=== PATIENT | male | born 2000 | race African-American/Black ===

== ENCOUNTER → 2023-07-24 09:06 | Outpatient (CLI) | payer OTHER, SELFPAY ==
--- NOTE | ~2023-07-24 | MR_ITS ---
EXAMINATION: MR lower leg RT wo con DATE: 07/24/2023 09:48 INDICATION: Right ankle ligament sprain. TECHNIQUE: Magnetic resonance imaging (MRI) of the right lower leg was performed without intravenous contrast. Sequences included axial, sagittal and coronal T1-weighted FSE and fluid sensitive FSE STIR . The contralateral left lower leg is included on the coronal images. COMPARISON: None. FINDINGS: There is extensive feathery muscular edema and small amount of epimysial edema extending the length o f the right peroneus longus and brevis muscles. The intramuscular edema centered around the tendons c onsistent with extensive but still low-grade strain. No discrete interruption of the fibers of the mu scle or tendon appreciated to suggest a higher grade strain. Remaining muscles and tendons in the rig ht lower leg appear normal and symmetric with the contralateral left calf. Normal bone marrow signal throughout with no reactive edema, fracture or pathologic marrow replacing process. The knee and ankl e joints at the margins of the field of imaging which limits evaluation. No evident knee or ankle clemente nt effusion. The stabilizing ligaments of the ankle are unable to be diagnostically evaluated due to distortion and loss of signal due to the positioning at the margins of the field of imaging. IMPRESSION: 1. Extensive but still low-grade peroneus longus and brevis strain with edema extending the complete proximal to distal length of the myotendinous junctions. Reviewed, dictated and finalized at location A. IMPRESSION: 1. Extensive but still low-grade peroneus longus and brevis strain with edema e xtending the complete proximal to distal length of the myotendinous junctions.
== END ==
DX: M79.89 Other specified soft tissue disorders (principal)
CPT/HCPCS: 73718